=== PATIENT | male | born 1960 | race Caucasian/White ===

== ENCOUNTER 2017-10-23 20:57 | Emergency (ER) | payer MEDICAID ==
[2014-02-05 12:27] VITALS: BMI 33.9
[~2017-10-23 20:57] MED LIST: ASPIRIN 81 MG E81 MG PO; ASPIRIN325 MG PO; COLACE100 MG PO; FERROUS SULFAT325 MG PO; GLIPIZIDE10 MG; GLIPIZIDE10 MG PO; IMDUR30 MG PO; INDAPAMIDE2.5 MG; K-DUR20 MEQ PO; LASIX40 MG PO; LOPRESSOR25 MG PO; MIRALAX17 GM PO; NORCO 5/325 TAB1 TA1 PO; PACERONE400 MG PO; POVIDONE-IODINE30 GM TP; PRAVACHOL10 MG PO; PROTONIX40 MG PO; ROBAXIN-750750 MG PO; SENOKOT-S TABLE1 TAB PO
== END 2017-10-23 22:39 | disposition home or self-care (01) ==
LOC: D.ER 20:57
DX: S61.011A Laceration without foreign body of right thumb without damage to nail, initial encounter (principal); W26.0XXA Contact with knife, initial encounter; Y93.G3 Activity, cooking and baking; Y92.010 Kitchen of single-family (private) house as the place of occurrence of the external cause; I10 Essential (primary) hypertension; K21.9 Gastro-esophageal reflux disease without esophagitis

== ENCOUNTER → 2019-02-13 12:21 | Outpatient (CLI) | payer OTHER ==
[2014-02-05 12:27] VITALS: BMI 33.9
== END | disposition home or self-care (01) ==
LOC: D.MRI 12:21
PROVIDERS: ATTEND Orthopaedic Surgery
DX: M75.122 Complete rotator cuff tear or rupture of left shoulder, not specified as traumatic (principal)

== ENCOUNTER 2019-03-24 09:15 | Day surgery (SDC) | payer OTHER ==
[2019-03-23 10:02] LABS: HEMATOCRIT 38.4 % (42.0-54.0); HEMOGLOBIN 13.2 g/dL (13.5-17.5); MCH 29.9 pg (26.0-34.0); MCHC 34.4 g/dL (31.0-37.0); MCV 86.9 fL (80.0-100.0); MEAN PLATELET VOLUME 11.4 fL (7.4-10.4); RBC 4.42 10x6/uL (4.20-6.10); RDW 13.7 % (11.5-14.5); WBC 4.6 10x3/uL (4.8-10.8)
[2019-03-23 10:03] LABS: CALC OSMOLALITY 283 mosm/kg (275-300); CALCIUM 8.4 mg/dL (8.5-10.1); CARBON DIOXIDE 24.6 mmol/L (21.0-32.0); CHLORIDE - SERUM 103 mmol/L (98-107); CREATININE - SERUM 0.9 mg/dL (0.6-1.3); GLUCOSE 279 mg/dL (74-106); POTASSIUM - SERUM 4.1 mmol/L (3.5-5.1); SODIUM 137 mmol/L (136-145); UREA NITROGEN 13 mg/dL (7-18); eGFR NON AFRICAN AMERICAN > 90 mL/min (90-120)
[2019-03-23 10:20] LABS: PLATELET COUNT 111 10x3/uL (130-400)
[2019-03-23 10:23] LABS: PLATELET ESTIMATE DECREASED
[~2019-03-24 09:15] MED LIST changes: +CELEXA20 MG PO; +COREG 3.1253.125 MG PO; +COUMADIN5 MG PO; +ISOSORBIDE MONO30 M1 PO; +LISINOPRIL10 MG PO
[2019-03-24 10:47] VITALS: BP 105/51; BMI 32.1
[2019-03-24] MEDS ORDERED: PERCOCET 7.5/321 TAB PO (14:19)
--- NOTE | 2019-03-25 07:34 | OP ---
PATIENT NAME: DIANA HIGH MEDICAL RECORD: [id number] :62 LOCATION:[facility] ADMISSION DATE: SURGEON: DEVAUGHN ATKINSON DO DATE OF OPERATION: 03/24/2019 PROCEDURE PERFORMED: Left shoulder arthroscopy with subacromial decompression, distal clavicle excision, labral debridement, biceps tenodesis. PREOPERATIVE DIAGNOSES: Left shoulder labral tear, superior labrum anterior and posterior tear and partial rotator cuff tear, acromioclavicular joint arthritis, and subacromial impingement. POSTOPERATIVE DIAGNOSES: Left shoulder labral tear, superior labrum anterior and posterior tear and partial rotator cuff tear, acromioclavicular joint arthritis, and subacromial impingement. INDICATIONS: Mr. High is a 58-year-old male who presented to my office with left shoulder pain. He has had it for quite some time. He underwent an injection, which did not help. We got an MRI, which showed the above findings. I informed him that if the partial tear I feel is more than 50% I would take it down, repair it, but it was not, then do the other work as described. He is aware of the risks including infection, bleeding, damage to nerves and vessel, damage from the block, increased pain, need for further surgery, and he is okay with those risks and signed the consent. SURGEON: Devaughn Atkinson DO DESCRIPTION OF PROCEDURE: The patient received a block by anesthesia in the preoperative area and was taken to the operative suite, laid in the right lateral decubitus position with left shoulder up. The left shoulder was prepped and draped in sterile fashion. Timeout was performed. Everyone was in agreeance with correct side, site, patient and procedure, received 900 mg of clindamycin preoperatively. The procedure then began with insufflating the capsule or the actual shoulder joint with 60 mL of normal saline and then the posterior portal was established with an 11-blade scalpel and a trocar was entered into the joint. Once trocar was entered into the joint, the camera was put in, a large labral tear was seen, SLAP tear. The anterior portal was then established and a burner was brought in and did a biceps tenotomy at that point. The labrum was then debrided with the burner. The supraspinatus was checked and on the articular side, it was maybe 20% frayed, a 20% thickness torn, not very much. The subscapularis tendon was inspected and seen to be in good repair. Inferior gutter was checked and the loose body were seen in it. The infraspinatus was in good shape as well. I then put the trocar in the subacromial space and a lateral portal was established with an 18-gauge spinal needle and 11-blade scalpel. Then, a subacromial decompression was performed and a distal clavicle excision. The bursa was then removed off the rotator cuff. There was no tear seen on the bursal side due to not full thickness tear and not even 20% on the articular side tear. I chose not to do a rotator cuff repair as informed the patient. The scope was then removed as water was suctioned out through the trocar and incision was made on the anterior humerus. Dissection was made down to the long head of the biceps tendon. This was taken out through the wound, a whipstitch and then a single button was pushed into the anterior cortex of the humerus and the button was cinched down cinching the device up to long head biceps and down to the humerus and this was tied and a free needle was used to go through the tendon again and this was tied down. OPERATIVE REPORT [id number] DIANA HIGH Once this was tied down, the excess tendon was cut as well as the suture. The site was irrigated and closed with 2-0 Vicryl in an inverted interrupted fashion, 4-0 Monocryl ran on the skin and 4-0 Monocryl was used to close the anterolateral and posterior portals. Dermabond glue was placed on all of them. A Telfa and Tegaderm was put on after that. He was awakened and taken to recovery in stable condition. BLOOD LOSS: Minimal. COMPLICATIONS: None. TRANSINT:[id number] Voice Confirmation ID: [id number] DOCUMENT ID: [id number] DEVAUGHN ATKINSON DO at 0734 CC: [id number] DICTATION DATE: 03/24/19 1416 DISTRIBUTION MANAGER: 03/24/19 2311 [facility] 03/24/19 [id number] [place] [address]
== END 2019-03-24 16:30 | disposition home or self-care (01) ==
LOC: D.OPS 09:15 → D.PAN 10:30 → D.OPS 11:05
PROVIDERS: Anesthesiology; ATTEND Orthopaedic Surgery
DX: S43.432A Superior glenoid labrum lesion of left shoulder, initial encounter (principal); M75.112 Incomplete rotator cuff tear or rupture of left shoulder, not specified as traumatic; M13.812 Other specified arthritis, left shoulder; M75.42 Impingement syndrome of left shoulder; Z01.812 Encounter for preprocedural laboratory examination; X58.XXXA Exposure to other specified factors, initial encounter

== ENCOUNTER → 2019-04-10 08:53 | Outpatient (CLI) | payer OTHER ==
[2019-03-24 10:47] VITALS: BMI 32.1
[~2019-04-10 08:53] MED LIST changes: +PERCOCET 7.5/321 TAB PO
--- NOTE | 2019-04-14 09:40 | ST ---
PATIENT:DIANA HIGH MEDICAL RECORD: [id number] SEX: M LOCATION:[facility] ORDER #: ADMISSION DATE: 04/10/19 AGE OF PATIENT: 58 REFERRING PHYSICIAN: INTERPRETING PHYSICIAN: TINO LOWE MD DATE OF SERVICE: 04/10/2019 PROCEDURE: Nuclear stress test. INDICATION: Angina, coronary artery disease, abnormal ECG. TECHNIQUE: He was exercised on standard Lexiscan protocol with 32 mCi of sestamibi injected at peak stress, 10 mCi used previously for rest images. FINDINGS: Gated SPECT reveals preserved ejection fraction at 61% with good wall motion and thickening and brightening throughout all segments. SPECT imaging Cardiolite was used as myocardial fusion agent. There is homogeneous uptake throughout all segments at rest and stress with no evidence of inducible ischemia or previous infarction. OVERALL IMPRESSION: 1. This is a normal nuclear stress test with no evidence of inducible ischemia or previous infarction. 2. Gated SPECT reveals a preserved ejection fraction at 61%. In this patient with ongoing symptomatology, the current scan does not suggest the presence of hemodynamically significant coronary artery disease. Evaluate noncardiac etiology of chest pain. TRANSINT:[id number] Voice Confirmation ID: [id number] DOCUMENT ID: [id number] TINO LOWE MD at 0940 CC: DARY LYNCH DO [id number] DICTATION DATE: 04/11/19 1017 FITTER MACHINIST: 04/11/19 2310 [facility] 04/10/19 [id number] [place] [address]
== END | disposition home or self-care (01) ==
LOC: D.HCCARDIO 08:53
PROVIDERS: ATTEND Internal Medicine Cardiovascular Disease
DX: I25.10 Atherosclerotic heart disease of native coronary artery without angina pectoris (principal)

== ENCOUNTER 2019-11-18 15:12 | Inpatient (IN) | payer OTHER ==
[~2019-11-18] VITALS: Ht 180.3 cm; Wt 99.0 kg
[2019-11-18] MEDS ORDERED: GLUCOPHAGE500 MG PO (15:31)
[2019-11-18 16:03] LABS: BASOPHILS 0.3 % (0-2); EOSINOPHILS 0.6 % (0-7); HEMOGLOBIN 13.3 g/dL (13.5-17.5); IMMATURE GRANULOCYTES 0.3 % (0-5); LYMPHOCYTES 9.5 % (15-50); MCH 30.3 pg (26.0-34.0); MCHC 33.3 g/dL (31.0-37.0); MCV 91.1 fL (80.0-100.0); MEAN PLATELET VOLUME 10.5 fL (7.4-10.4); MONOCYTES 10.7 % (2-11); NEUTROPHILS 78.6 % (40-80); PLATELET COUNT 103 10x3/uL (130-400); RBC 4.39 10x6/uL (4.20-6.10); RDW 15.6 % (11.5-14.5)
[2019-11-18 16:11] LABS: APTT 35.6 SECONDS (22.8-39.4)
[2019-11-18 16:13] LABS: CALC OSMOLALITY 278 mosm/kg (275-300); CALCIUM 8.7 mg/dL (8.5-10.1); CARBON DIOXIDE 28.3 mmol/L (21.0-32.0); CHLORIDE - SERUM 98 mmol/L (98-107); CREATININE - SERUM 1.1 mg/dL (0.6-1.3); POTASSIUM - SERUM 3.9 mmol/L (3.5-5.1); SODIUM 136 mmol/L (136-145); UREA NITROGEN 18 mg/dL (7-18); eGFR NON AFRICAN AMERICAN 73 mL/min (90-120)
[2019-11-18 16:14] LABS: GLUCOSE 184 mg/dL (74-106)
[2019-11-18 16:17] LABS: INR 1.7 (0.85-1.17); PROTIME 19.8 SECONDS (11.6-15.0)
[2019-11-18 16:28] LABS: ALBUMIN 3.5 g/dL (3.4-5.0); ALKALINE PHOSPHATASE 68 U/L (46-116); ALT (SGPT) 26 U/L (10-68); BILIRUBIN - TOTAL 1.98 mg/dL (0.2-1.3); CKMB 0.1 U/L (0.0-3.6); CREATINE KINASE 30 UL (21-232); MAGNESIUM - SERUM 1.6 mg/dL (1.8-2.4); PROTEIN - SERUM 6.8 g/dL (6.4-8.2); TROPONIN-I 0.024 ng/mL (0.000-0.060)
[2019-11-18 18:00] LABS: APPEARANCE CLEAR (CLEAR); BILIRUBIN NEGATIVE (NEGATIVE); COLOR YELLOW (YELLOW); GLUCOSE 250 mg/dL (NEGATIVE); KETONE NEGATIVE (NEGATIVE); NITRITE NEGATIVE (NEGATIVE); PROTEIN NEGATIVE (NEGATIVE); UROBILINOGEN NORMAL (NORMAL)
[2019-11-18 20:30] VITALS: BP 120/36
--- NOTE | 2019-11-18 22:37 | NUR ---
ROOM IS NOT CLEAN AT THIS TIME. AWAITING EVS.
--- NOTE | 2019-11-18 23:15 | NUR ---
PT ARRIVED TO FLOOR VIA WHEELCHAIR, AMBULATED TO BED WITHOUT DIFFICULTY. IV LEFT AC INFUSING NS @ 125. AT BEDSIDE. PT STATES NO PAIN AT THIS TIME, ABD NOT TENDER TO TOUCH, BOWEL SOUNDS ACTIVE X4. STATES HE IS STILL HAVING DIARRHEA. TOOK HS MEDS ORDERED. FSBS 122, NO COVERAGE PER SS. LUNGS CTA. DENIES NEEDS. CL IN REACH, WILL CTM
[2019-11-19] VITALS (8 sets, daily range): BP systolic 98–142; BP diastolic 41–78; BMI 30.4
--- NOTE | 2019-11-19 01:53 | NUR ---
PT SLEEPING, WITHOUT DISTRESS. WILL CONT TO MONITOR. WENT TO ICU WAITING ROOM TO SLEEP
[2019-11-19 10:41] LABS: % SATURATION 6 % (15-55); IRON 20 ug/dl (35-150); TOTAL IRON BIND CAPACITY 293 ug/dl (260-445); UNSAT IRON BIND CAPACITY 273 ug/dl (150-375)
--- NOTE | 2019-11-19 19:30 | NUR ---
ALERT AND ORIENTED. NO SIGNS OF ACUTE DISTRESS. AT BEDSIDE. IV LEFT AC WITH NS @125, NO REDNESS OR SWELLING. TELEMTRY ON PATIENT. PATIENT STATES HE HAS NO NEEDS AT THIS TIME. BED RAILS X2. CALL LIGHT AND BEDSIDE TABLE WITHIN REACH.
[2019-11-20 00:49] VITALS: BP 135/79
[2019-11-20 04:02] VITALS: BP 135/79
[2019-11-20 05:57] LABS: INR 1.59 (0.85-1.17); PROTIME 18.8 SECONDS (11.6-15.0)
[2019-11-20 06:15] LABS: ALKALINE PHOSPHATASE 51 U/L (46-116); BILIRUBIN - TOTAL 0.87 mg/dL (0.2-1.3); CARBON DIOXIDE 25.8 mmol/L (21.0-32.0); CHLORIDE - SERUM 108 mmol/L (98-107); CREATININE - SERUM 0.9 mg/dL (0.6-1.3); PROTEIN - SERUM 5.1 g/dL (6.4-8.2); SODIUM 143 mmol/L (136-145); eGFR NON AFRICAN AMERICAN > 90 mL/min (90-120)
[2019-11-20 06:20] LABS: ALBUMIN 2.5 g/dL (3.4-5.0); ALT (SGPT) 18 U/L (10-68); CALC OSMOLALITY 285 mosm/kg (275-300); GLUCOSE 131 mg/dL (74-106); POTASSIUM - SERUM 3.2 mmol/L (3.5-5.1); UREA NITROGEN 10 mg/dL (7-18)
--- NOTE | 2019-11-20 07:15 | NUR ---
PT SITTING UP IN BED. RR EVEN AND UNLABORED. ASSESSMENT COMPLETE. HYPOACTIVE BOWEL SOUNDS X4. DENIES NEEDS OR PAIN AT THIS TIME. CRACKLES NOTED IN LOWER RIGHT LOBE. PT IS USING URINAL. 600 MLS DARK URINE NOTED. IV NOTED TO LEFT AC INFUSING NS @ 100MLS/HR. BED IN LOWEST POSITION. CALL LIGHT WITHIN REACH. WILL CONTINUE TO MONITOR.
[2019-11-20 07:27] VITALS: BP 137/74
[2019-11-20 07:31] LABS: HEMATOCRIT 33.2 % (42.0-54.0); HEMOGLOBIN 11.1 g/dL (13.5-17.5); MCH 30.3 pg (26.0-34.0); MCHC 33.4 g/dL (31.0-37.0); MCV 90.7 fL (80.0-100.0); MEAN PLATELET VOLUME 9.8 fL (7.4-10.4); RBC 3.66 10x6/uL (4.20-6.10); RDW 15.4 % (11.5-14.5)
[2019-11-20 07:37] LABS: PLATELET COUNT 63 10x3/uL (130-400); WBC 2.7 10x3/uL (4.8-10.8)
--- NOTE | 2019-11-20 09:33 | NUR ---
I have reviewed this patient and I concur with the Shift Assessment completed by the Licensed Practical Nurse today this shift.
[2019-11-20 10:22] LABS: UDS - AMPHET NEGATIVE QUAL (NEGATIVE); UDS - BARB NEGATIVE QUAL (NEGATIVE); UDS - BENZO NEGATIVE QUAL (NEGATIVE); UDS - COCAINE NEGATIVE QUAL (NEGATIVE); UDS - OPIATE POSITIVE QUAL (NEGATIVE); UDS - PCP NEGATIVE QUAL (NEGATIVE); UDS - THC NEGATIVE QUAL (NEGATIVE)
[2019-11-20 11:39] LABS: ANISOCYTOSIS OCC; EOSINOPHILS 2 % (0-7); LYMPHOCYTES 16 % (15-50); MONOCYTES 18 % (2-11); NEUTROPHILS 60 % (40-80)
[2019-11-20 11:43] LABS: PLATELET ESTIMATE DECREASED
[2019-11-20 12:34] VITALS: BP 121/65
[2019-11-20 13:58] VITALS: BMI 30.4
--- NOTE | 2019-11-20 17:13 | MORECARE ---
CASE MANAGEMENT DISCHARGE SUMMARY PATIENT: DIANA HIGH GENE UNIT: [id number] ADM DATE: 11/18/19 AGE: 59 : 62 SEX: M ROOM/BED: D.1211 AUTHOR: BHAVNADOC PHYSICIAN: REFERRING PHYSICIAN: SHERI CELAYA MD DATE OF SERVICE: 11/20/19 Discharge Plan Patient Name: DIANA HIGH Facility: [facility]:[place] : 1960 Planned Disposition: Home Anticipated Discharge Date: Discharge Date: Expected LOS: Initial Reviewer: [email or web address] Initial Review Date: 11/18/2019 Generated: 11/20/19 6:12 pm Comments DCP- Discharge Planning Updated by [email or web address]: Umm Thomson on 11/20/19 4:[address] Patient Name: DIANA HIGH Admission Status: ER Accout number: [id number] Admission Date: 11-18-2019 : 1960 Admission Diagnosis: Attending: SHERI CELAYA Current LOS: 2 Anticipated DC Date: Planned Disposition: Home Primary Insurance: [employer] POS Discharge Planning Comments: CM met with patient at bedside after explaining CM role and obtaining verbal consent. Patient lives at home with his where he is independent with his care and plans to return there upon discharge. Patient feels this would be a safe discharge. CM discussed availability / needs of home health and medical equipment. Patient denies any discharge needs at this time. Patient states he will have his family drive him home upon discharge. Patient states he will need a work release when discharged. CM will continue to follow and assist as needed with discharge planning / needs. Burr Machine Operator: Umm Thomson DCPIA - Discharge Planning Initial Assessment Updated by [email or web address]: Umm Thomson on 11/20/19 5:10 pm * Is the patient Alert and Oriented? Yes * How many steps to enter\exit or inside your home? * PCP SHAGGY ODONNELL * Pharmacy [facility] * Preadmission Environment Home with Family * ADLs Independent * Equipment None * List name and contact numbers for known caregivers / representatives who currently or will assist patient after discharge: TREVOR HIGH - SPOUSE - [phone] * Verbal permission to speak to the caregivers and representatives has been obtained from the patient. Yes * Community resources currently utilized None * Additional services required to return to the preadmission environment? No * Can the patient safely return to the preadmission environment? Yes * Has this patient been hospitalized within the prior 30 days at any hospital? No Patient Name: DIANA HIGH Page [id number] at 1713 All edits/amendments must be made on the electronic document DICTATION DATE: 11/20/191711 LENS GAUGER: PIO 11/20/191711 RPT#: [id number] DC DATE: STATUS: ADM IN [facility] [address] [place] [address] END OF REPORT
[2019-11-20 17:48] VITALS: BP 147/73
--- NOTE | 2019-11-20 19:18 | NUR ---
PATIENT RESTING IN BED WITH NO S/S OF DISTRESS AND DENIES NEEDS AT THIS TIME. BED IN LOWEST POSITION AND CALL LIGHT WITHIN REACH. ENCOURAGED THE PATIENT TO CALL IF SHE HAS NEEDS. WILL CONTINUE TO MONITOR.
[2019-11-20 19:55] VITALS: BP 128/73
[2019-11-21 00:19] VITALS: BP 132/72
[2019-11-21 04:22] VITALS: BP 120/64
[2019-11-21 06:32] LABS: BASOPHILS 0.4 % (0-2); EOSINOPHILS 4.3 % (0-7); HEMATOCRIT 31.5 % (42.0-54.0); HEMOGLOBIN 10.3 g/dL (13.5-17.5); LYMPHOCYTES 23.9 % (15-50); MCH 29.5 pg (26.0-34.0); MCHC 32.7 g/dL (31.0-37.0); MCV 90.3 fL (80.0-100.0); MEAN PLATELET VOLUME 10.3 fL (7.4-10.4); MONOCYTES 12.2 % (2-11); NEUTROPHILS 59.2 % (40-80); PLATELET COUNT 73 10x3/uL (130-400); RBC 3.49 10x6/uL (4.20-6.10); RDW 15.6 % (11.5-14.5); WBC 2.3 10x3/uL (4.8-10.8)
[2019-11-21 06:42] LABS: INR 1.63 (0.85-1.17); PROTIME 19.2 SECONDS (11.6-15.0)
[2019-11-21 06:53] LABS: ALBUMIN 2.4 g/dL (3.4-5.0); ALKALINE PHOSPHATASE 46 U/L (46-116); ALT (SGPT) 16 U/L (10-68); BILIRUBIN - TOTAL 0.68 mg/dL (0.2-1.3); CALC OSMOLALITY 282 mosm/kg (275-300); CALCIUM 7.1 mg/dL (8.5-10.1); CHLORIDE - SERUM 109 mmol/L (98-107); CREATININE - SERUM 0.7 mg/dL (0.6-1.3); GLUCOSE 132 mg/dL (74-106); POTASSIUM - SERUM 3.3 mmol/L (3.5-5.1); PROTEIN - SERUM 5.3 g/dL (6.4-8.2); SODIUM 142 mmol/L (136-145); eGFR NON AFRICAN AMERICAN > 90 mL/min (90-120)
[2019-11-21 06:57] LABS: UREA NITROGEN 7 mg/dL (7-18)
[2019-11-21 07:12] LABS: HEPATITIS C ANTIBODY <0.1 S/CO RAT (0.0-0.9)
[2019-11-21 07:30] LABS: PLATELET ESTIMATE DECREASED
--- NOTE | 2019-11-21 07:56 | NUR ---
AWAKE AND ALERT. ORIENTED X3. NO C/O AT THIS TIME. SITTING UP IN BED EATING BREAKFAST. LUNGS ARE CLEAR BILATERALLY, NO COUGH NOTED. SKIN IS INTACT WITHOUT REDNESS. IV TO LEFT AC IS PATENT WITHOUT REDNESS AT INSERTION SITE. DENIES NEEDS.
[2019-11-21 08:06] VITALS: BP 144/79
--- NOTE | 2019-11-21 10:00 | NUR ---
IV TO LEFT AC CONTINUES TO BEEP. ATTEMPTED TO RESITE X1 WITHOUT SUCCESS. POSSIBLE D/C TODAY SO WILL LEAVE. DENIES NEEDS.
--- NOTE | 2019-11-21 11:46 | NUR ---
FSBS 138. NO COVERAGE REQUIRED.
[2019-11-21 12:12] VITALS: BP 137/77
[2019-11-21 13:00] VITALS: Ht 180.3 cm; Wt 99.0 kg
--- NOTE | 2019-11-21 15:00 | NUR ---
IV TO LEFT AC IS LEAKING. D/C WITH CATHETER INTACT. RESITED WITH 20G TO RIGHT FOREARM AFTER ONE ATTEMPT. NO C/O AT THIS TIME. DENIES NEEDS.
[2019-11-21 17:34] VITALS: BP 124/68
--- NOTE | 2019-11-21 18:43 | NUR ---
ATE ABOUT HALF OF SUPPER. NO C/O AT THIS TIME. NO CHANGES NOTED. FAMILY IN ROOM. LINENS CHANGED PER STAFF AT FAMILY REQUEST.
--- NOTE | 2019-11-21 19:30 | NUR ---
PT ALERT AND ORIENTED X3. NO COMPLAINTS. SITTING UP IN BED WATCHING TV. IV TO RIGHT FOREARM INFUSING WITH NO REDNESS OR SWELLING AT INSERTION SITE. LUNGS CLEAR. DENIES HAVING ANY PAIN OR NEEDS AT THIS TIME. BED IN LOWEST POSITION. SIDE RAILS UP. CALL LIGHT IN REACH. WILL CONTINUE TO MONITOR.
[2019-11-21 20:59] VITALS: BP 122/56
[2019-11-22 00:58] VITALS: BP 121/49
--- NOTE | 2019-11-22 04:00 | NUR ---
PATIENT RESTING IN BED WITH EYES CLOSED. NO SIGNS OF DISTRESS. BED IN LOWEST POSITION. SIDE RAILS UP. CALL LIGHT IN REACH. WILL CONTINUE TO MONITOR.
[2019-11-22 06:29] VITALS: BP 120/50
--- NOTE | 2019-11-22 07:10 | NUR ---
REPORT RECEIVED FROM BUTTON TUFTER AND PATIENT CARE ASSUMED. PATIENT LAYING IN BED ON BACK AWAKE, ALERT AND ORIENTED X 4. PATIENT IS STABLE AND VSS. PATIENT DENIES ANY NEEDS OR PAIN. WILL CONTINUE WITH PLAN OF CARE. SR UP X 2 BED IN LOW POSITION AND CALL LIGHT IN REACH.
[2019-11-22 07:16] VITALS: BP 134/77
[2019-11-22 08:01] LABS: ALBUMIN 2.7 g/dL (3.4-5.0); ALKALINE PHOSPHATASE 53 U/L (46-116); BILIRUBIN - TOTAL 0.84 mg/dL (0.2-1.3); CALC OSMOLALITY 277 mosm/kg (275-300); CALCIUM 7.5 mg/dL (8.5-10.1); CARBON DIOXIDE 22.3 mmol/L (21.0-32.0); CHLORIDE - SERUM 107 mmol/L (98-107); CREATININE - SERUM 0.8 mg/dL (0.6-1.3); GLUCOSE 135 mg/dL (74-106); POTASSIUM - SERUM 3.7 mmol/L (3.5-5.1); PROTEIN - SERUM 5.6 g/dL (6.4-8.2); SODIUM 139 mmol/L (136-145); UREA NITROGEN 7 mg/dL (7-18); eGFR NON AFRICAN AMERICAN > 90 mL/min (90-120)
[2019-11-22 08:02] LABS: ALT (SGPT) 22 U/L (10-68)
[2019-11-22 08:03] LABS: INR 3.49 (0.85-1.17); PROTIME 34.4 SECONDS (11.6-15.0)
[2019-11-22 09:01] LABS: HEMATOCRIT 32.6 % (42.0-54.0); HEMOGLOBIN 10.8 g/dL (13.5-17.5); MCH 29.9 pg (26.0-34.0); MCHC 33.1 g/dL (31.0-37.0); MCV 90.3 fL (80.0-100.0); MEAN PLATELET VOLUME 10.8 fL (7.4-10.4); RBC 3.61 10x6/uL (4.20-6.10); RDW 15.7 % (11.5-14.5); WBC 2.8 10x3/uL (4.8-10.8)
[2019-11-22 09:02] LABS: PLATELET COUNT 89 10x3/uL (130-400)
--- NOTE | 2019-11-22 09:03 | MORECARE ---
CASE MANAGEMENT DISCHARGE SUMMARY PATIENT: DIANA HIGH UNIT: [id number] ADM DATE: 11/18/19 AGE: 59 : 62 SEX: M ROOM/BED: D.1211 AUTHOR: BHAVNA,DOC PHYSICIAN: REFERRING PHYSICIAN: SHERI CELAYA MD DATE OF SERVICE: 11/22/19 Discharge Plan Patient Name: DIANA HIGH Facility: [facility]:[place] : 1960 Planned Disposition: Home Anticipated Discharge Date: Discharge Date: Expected LOS: Initial Reviewer: [email or web address] Initial Review Date: 11/18/2019 Generated: 11/22/19 10:02 am DCP- Discharge Planning Updated by [email or web address]: Umm Thomson on 11/20/19 4:[address] Patient Name: DIANA HIGH Admission Status: ER Accout number: [id number] Admission Date: 11-18-2019 : 1960 Admission Diagnosis: Attending: SHERI CELAYA Current LOS: 2 Anticipated DC Date: Planned Disposition: Home Primary Insurance: [employer] POS Discharge Planning Comments: CM met with patient at bedside after explaining CM role and obtaining verbal consent. Patient lives at home with his where he is independent with his care and plans to return there upon discharge. Patient feels this would be a safe discharge. CM discussed availability / needs of home health and medical equipment. Patient denies any discharge needs at this time. Patient states he will have his family drive him home upon discharge. Patient states he will need a work release when discharged. CM will continue to follow and assist as needed with discharge planning / needs. Chief Of Hospital Medicine: Umm Thomson DCPIA - Discharge Planning Initial Assessment Updated by [email or web address]: Umm Thomson on 11/20/19 5:10 pm * Is the patient Alert and Oriented? Yes * How many steps to enter\exit or inside your home? * PCP SHAGGY ODONNELL * Pharmacy [facility] * Preadmission Environment Home with Family * ADLs Independent * Equipment None * List name and contact numbers for known caregivers / representatives who currently or will assist patient after discharge: TREVOR HIGH - SPOUSE - [phone] * Verbal permission to speak to the caregivers and representatives has been obtained from the patient. Yes * Community resources currently utilized None * Additional services required to return to the preadmission environment? No * Can the patient safely return to the preadmission environment? Yes * Has this patient been hospitalized within the prior 30 days at any hospital? No Last DP export: 11/20/19 4:13 p Patient Name: DIANA HIGH Page [id number] at 0903 All edits/amendments must be made on the electronic document DICTATION DATE: 11/22/19901 MUSICAL INSTRUMENT MAKER OR REPAIRER: PIO 11/22/19901 RPT#: [id number] DC DATE: STATUS: ADM IN [facility] [address] [place] [address] END OF REPORT
[2019-11-22] MEDS ORDERED: ZOVIRAX800 MG PO (10:30)
[2019-11-22] MEDS ORDERED: LEVAQUIN750 MG PO (10:31)
[2019-11-22 11:30] LABS: EOSINOPHILS 2 % (0-7); LYMPHOCYTES 25 % (15-50); MONOCYTES 6 % (2-11); NEUTROPHILS 67 % (40-80); PLATELET ESTIMATE DECREASED
--- NOTE | 2019-11-22 11:50 | NUR ---
PATIENT IS STABLE AND VSS. PATIENT DENIES ANY NEEDS OR PAIN. ORDERS RECEIVED FOR DC. WRITTEN AND VERBAL INSTRUCTIONS GIVEN. PT VERBALIZED UNDERSTANDING AND SIGNED PAPERWORK. IV DCD WITHOUT DIFFICULTY WITH ENTIRE CATHETER INTACT. PRESSURE DRSG APPLIED. PATIENT TO FRONT DOOR VIA WC ACCOMPANIED BY AND HOSPITAL PERSONNEL TO VEHICLE DRIVEN BY . PT IS DCD TO HOME FOR SELF CARE.
== END 2019-11-22 13:04 | disposition home or self-care (01) | DRG 871 ==
LOC: D.ER 15:12 → D.M3 19:43
PROVIDERS: Family Medicine; ADMIT Internal Medicine Nephrology; ATTEND Internal Medicine Nephrology
DX: A41.9 Sepsis, unspecified organism (principal); J96.01 Acute respiratory failure with hypoxia; K72.00 Acute and subacute hepatic failure without coma; N39.0 Urinary tract infection, site not specified; D64.9 Anemia, unspecified; B96.20 Unspecified Escherichia coli [E. coli] as the cause of diseases classified elsewhere; D69.6 Thrombocytopenia, unspecified; E83.42 Hypomagnesemia; K74.60 Unspecified cirrhosis of liver; R16.1 Splenomegaly, not elsewhere classified; Z79.01 Long term (current) use of anticoagulants; I10 Essential (primary) hypertension; E78.5 Hyperlipidemia, unspecified; I25.10 Atherosclerotic heart disease of native coronary artery without angina pectoris; E11.9 Type 2 diabetes mellitus without complications; K21.9 Gastro-esophageal reflux disease without esophagitis; F32.9 Major depressive disorder, single episode, unspecified; K52.9 Noninfective gastroenteritis and colitis, unspecified; Z86.718 Personal history of other venous thrombosis and embolism

== ENCOUNTER → 2020-03-08 09:34 | Outpatient (CLI) | payer OTHER ==
[2019-11-21 13:00] VITALS: BMI 30.4
[~2020-03-08 09:34] MED LIST changes: +GLUCOPHAGE500 MG PO; +LEVAQUIN750 MG PO; +ZOVIRAX800 MG PO
== END | disposition home or self-care (01) ==
LOC: D.US 09:34
PROVIDERS: ATTEND Legal Medicine
DX: D69.6 Thrombocytopenia, unspecified (principal)

== ENCOUNTER → 2020-04-05 08:10 | Outpatient (CLI) | payer OTHER ==
[2019-11-21 13:00] VITALS: BMI 30.4
== END | disposition home or self-care (01) ==
LOC: D.HCCARDIO 08:10
PROVIDERS: ATTEND Internal Medicine Cardiovascular Disease
DX: I25.10 Atherosclerotic heart disease of native coronary artery without angina pectoris (principal)

== ENCOUNTER → 2021-03-17 09:30 | Outpatient (CLI) | payer OTHER ==
[2019-11-21 13:00] VITALS: BMI 30.4
== END | disposition home or self-care (01) ==
LOC: D.RAD 09:30
PROVIDERS: ATTEND Pediatrics
DX: Z02.71 Encounter for disability determination (principal)